=== PATIENT | female | born 1955 | race Caucasian/White ===

== ENCOUNTER 2018-08-18 13:19 | Day surgery (SDC) | payer BC ==
[~2018-08-18] VITALS: Ht 152.4 cm; Wt 58.7 kg
[2018-08-18 14:01] VITALS: Ht 152.4 cm; Wt 58.7 kg
[2018-08-18] MEDS ORDERED: METO-336 PO (14:04)
[2018-08-18 14:11] VITALS: BP 149/73; PULSE 64; RESP 18
[2018-08-18] MEDS ORDERED: FENTAnyl 50 MCG/ML VIAL ONE (14:40)
[2018-08-18] MEDS ORDERED: MIDAZOLAM 1 MG/ML 2 ML INJ ONE ×2 (14:40)
[2018-08-18 14:59] VITALS: BP 107/61; RESP 16
== END 2018-08-18 14:43 | disposition home or self-care (01) ==
LOC: GIL 13:19
PROVIDERS: ATTEND Internal Medicine
DX: Z12.11 Encounter for screening for malignant neoplasm of colon (principal); K57.30 Diverticulosis of large intestine without perforation or abscess without bleeding; I10 Essential (primary) hypertension
CPT/HCPCS: 45378; J2250; J3010